=== PATIENT | female | born 2000 ===

== ENCOUNTER 2018-10-27 02:22 | Emergency (ER) | payer SELFPAY ==
--- NOTE | 2018-10-27 02:32 | ED ---
Substance Abuse/Use - HPI Summary HPI Summary: This patient is a 17 year old F brought in by ambulance to [facility] coming from her dorm due to etoh intoxication. Patient reports that her friends called EMS due to excessive vomiting. She denies drug use this evening. - History Of Current Complaint Chief Complaint: EDSubstanceAbuse Stated Complaint: 2209 PER EMS Hx Obtained From: Patient Onset/Duration of Drug/ETOH Abuse: Hours Overdose Characteristics: Oral Timing Of Abuse: Binge Use Aggravating Factor(s): Nothing Alleviating Factor(s): Nothing Associated Signs And Symptoms: Negative - Allergies/Home Medications Allergies/Adverse Reactions: Allergies Allergy/AdvReac Type Severity Reaction Status Date / Time No Known Allergies Allergy Verified 10/27/18 02:31 Home Medications: Home Medications NK [No Home Medications Reported] 10/27/18 [History Confirmed 10/27/18] PMH/Surg Hx/FS Hx/Imm Hx Opthamlomology History: Denies: Hx Legally Blind EENT History: Denies: Hx Deafness - Family History Known Family History: Negative: Cardiac Disease Review of Systems Positive: Other - etoh intoxication Positive: Vomiting, Nausea All Other Systems Reviewed And Are Negative: Yes Physical Exam - Summary Physical Exam Summary: Appearance: Appears intoxicated, Skin: Warm, dry, no obvious rash Eyes: sclera anicteric, no conjunctival pallor ENT: mucous membranes moist Neck: deferred Respiratory: No signs of respiratory distress Cardiovascular: Appears well perfused, pulses are nml Abdomen: deferred Neuro: awake, alert, answers questions apporpriately Musculoskeletal: Moving all 4 extremities without obvious discomfort Triage Information Reviewed: Yes Vital Signs Reviewed: Yes Course/Dx - Course Course Of Treatment: 17 year old F brought in by ambulance from her dorm due to etoh intoxication. Patient appears intoxicated but is awake, alert, and able to answer questions appropriately. Patient slept throughout the night with no issues. Patient will be discharged home. - Diagnoses Provider Diagnoses: Alcohol intoxication Discharge - Sign-Out/Discharge Documenting (check all that apply): Patient Departure - discharged Patient Received Moderate/Deep Sedation with Procedure: No - Discharge Plan Condition: Improved Disposition: HOME Patient Education Materials: Alcohol Intoxication (ED) Referrals: No Primary Care Phys,NOPCP [Primary Care Provider] - Additional Instructions: Ending up in an ER because of alcohol intoxication is often a red flag that you may have a drinking problem. I would encourage you to reflect on your drinking, perhaps talk to friends about it, and maybe even attend an AA meeting. It is much easier to change a problem behavior when you are young than ignoring it until you get older and the behavior gets more entrenched. - Billing Disposition and Condition Condition: IMPROVED Disposition: Home - Attestation Statements Document Initiated by Tosha: Yes Documenting Scribe: Oma Dodd Provider For Whom Tosha is Documenting (Include Credential): Alfonzo Blanco MD Scribe Attestation: I, Oma Dodd, scribed for Alfonzo Blanco MD on 10/30/18 at 1839. Scribe Documentation Reviewed: Yes Provider Attestation: The documentation as recorded by the Oma wilder accurately reflects the service I personally performed and the decisions made by me, Alfonzo Blanco MD Status of Scribe Document: Viewed
[2018-10-27 05:32] VITALS: BP 111/70
== END 2018-10-27 06:13 | disposition home or self-care (01) ==
LOC: ED 02:22
DX: F10.129 Alcohol abuse with intoxication, unspecified (principal)
CPT/HCPCS: 99283